=== PATIENT | male | born 1955 | race Caucasian/White ===

== ENCOUNTER → 2017-06-28 | Outpatient (CLI) | payer OTHER | END | disposition home or self-care (01) | LOC: C.LAB 15:29 | PROVIDERS: ATTEND Urology | DX: N52.9 Male erectile dysfunction, unspecified (principal) ==

== ENCOUNTER → 2017-11-08 | Outpatient (CLI) | payer OTHER | END | disposition home or self-care (01) | LOC: C.LAB 14:56 | PROVIDERS: ATTEND Urology | DX: N52.9 Male erectile dysfunction, unspecified (principal) ==

== ENCOUNTER → 2017-11-17 | Outpatient (CLI) | payer OTHER | END | disposition home or self-care (01) | LOC: C.PATHSPEC 17:10 | PROVIDERS: ATTEND Urology | DX: C61 Malignant neoplasm of prostate (principal) ==

== ENCOUNTER → 2017-12-01 | Outpatient (CLI) | payer OTHER ==
[2017-12-01 19:06] LABS: BLOOD UREA NITROGEN 34 mg/dl (7-18); CREATININE 1.37 mg/dl (0.60-1.40)
== END | disposition home or self-care (01) ==
LOC: C.LAB 15:47
PROVIDERS: ATTEND Urology
DX: C61 Malignant neoplasm of prostate (principal)

== ENCOUNTER → 2017-12-08 | Outpatient (CLI) | payer OTHER ==
[~2017-12-08] MED LIST: OPTIRAY 320 IV PRN
--- NOTE | 2017-12-08 13:07 | DIAGNOSTIC IMAGING REPORT ---
ABD/PELVIS IV CONTRAST ONLY CLINICAL HISTORY: 62 years-old Male presenting with PROSTATE CA. TECHNIQUE: Multidetector CT of the abdomen and pelvis was performed after the administration of intravenous contrast. IV contrast: 119 mL of Optiray 320. A dose lowering technique was used consistent with the principles of ALARA (as low as reasonably achievable). COMPARISON: None. CT DOSE (mGy.cm): The estimated cumulative dose is 804.93 mGycm. FINDINGS: Design/Animation Instructor topogram: Unremarkable. Lung bases: Lungs and pleural spaces clear. Normal heart size. No pericardial or pleural effusion. Liver: Normal morphology. Indeterminant vague lesion in segment IVb (series 3 image 127). Patent hepatic vasculature. Biliary: No intrahepatic or extrahepatic biliary ductal dilatation. Normal gallbladder. Pancreas: Normal. Mild prominence of the pancreatic duct diffusely. No gross evidence of a mass lesion. Spleen: Normal. Adrenal glands: Nonspecific mild thickening of the adrenal glands. Kidneys and ureters: Nonobstructing 4 mm calculus at the lower pole of the left kidney. Normal renal parenchyma. No hydronephrosis. Normal ureters. Bladder: Circumferential bladder wall thickening. Pelvic organs: Prostate enlargement likely secondary to benign prostatic hyperplasia. Bowel: Diverticulosis of the proximal to mid sigmoid colon and descending colon. No pericolonic fat infiltration or wall thickening. Mild stool burden. The appendix is normal. No bowel obstruction. Peritoneal cavity: No free fluid or intraperitoneal gas. Few calcifications noted within the omentum possibly indicating prior fat necrosis. These do not demonstrate associated suspicious soft tissue. Lymph nodes: No enlarged lymph nodes in the abdomen or pelvis. Vasculature: Aorta and IVC patent and normal in caliber. Abdominal wall: Normal. Musculoskeletal: Degenerative changes of the spine. IMPRESSION: 1. Indeterminate lesion in segment IVb of the liver, which has a somewhat suspicious morphology. Further evaluation with MR of the liver is recommended. Differential considerations include a metastatic lesion, hemangioma, or focal fat among other etiologies. 2. No lymphadenopathy. 3. Prostatomegaly with chronic bladder outlet obstruction. 4. Diverticulosis. 5. Nonobstructing 4 mm left renal calculus. Electronically signed by: Yony Garcia M.D. 12/08/2017 1:05 PM Dictated Date/Time: 12/08/2017 12:58 PM
--- NOTE | 2017-12-08 15:35 | DIAGNOSTIC IMAGING REPORT ---
BONE SCAN WHOLE BODY HISTORY: Prostate carcinoma PROSTATE CA RADIOTRACER: 25.7 mCi Tc-99m MDP STUDY/IMAGES: Planar anterior and posterior whole body imaging was performed 3 hours following the intravenous administration of radiotracer. COMPARISON: None. FINDINGS: Bilateral renal activity is present. Activity characteristics of the axial and appendicular skeleton are remarkable for scattered degenerative activity. This primarily is in the feet and ankles as well as shoulders. There is no evidence for metastatic bone process. IMPRESSION: No evidence for metastatic bone disease. The above report was generated using voice recognition software. It may contain grammatical, syntax or spelling errors. Electronically signed by: Phill Adams M.D. 12/08/2017 3:33 PM Dictated Date/Time: 12/08/2017 3:32 PM
== END | disposition home or self-care (01) ==
LOC: C.NUCL 11:36
PROVIDERS: ATTEND Urology
DX: C61 Malignant neoplasm of prostate (principal)

== ENCOUNTER 2023-01-25 12:59 | Observation (INO) ==
--- NOTE | 2023-01-25 13:21 | Emergency Department Note ---
Impression & Plan Generalized weakness, Elevated hemidiaphragm, Ambulatory dysfunction ED Provider Note Name: RAMON PETERSON Age: 67 Sex: M Arrives Via: Walk-In Informant: Patient ED Provider: Adolph Simmons MD Chief Complaint: Weakness Impression: As per impressions above Medical Decision Making: Healthy 67-year-old gentleman known to me from being in the department throughout most of the morning. He was here for generalized weakness and feeling ataxic while walking. Blood pressure had been treated during that time and after being seen by hospitalist plan was to have outpatient neurology follow-up. He had had an MRI of the head, neck as well as a CT of the head and neck without any concerning findings as cause of this. Unfortunately patient notes he was just feeling too weak and decided to check back into the ER. I will note that previous discussions he had noted a GI bug about 3 weeks ago and thus Guillain-Sanchez is part of my differential but after discussion with hosp italist they do not feel we should start IVIG at this time. They wish to further work-up this prior to that. I will note that a chest x-ray was obtained as had not been obtained earlier does have an elevated right hemidiaphragm. Patient is not hypoxic he has no shortness of breath he is no distress. This too was discussed with hospitalist and they will continue work-up with further imaging and consulting neurologist. Prior Medical Record and Triage/Nursing Notes reviewed by Me Differentials:Extensive differential considered including brain, cervical, thoracic spinal pathology, Guillain-Sanchez, viral infection, electrolyte imbalance, many other pathologies considered. Vital Signs: reviewed and remarkable for HTN Interventions: saline lock Imagin view chest x-ray as per my interpretation reveals a right elevated right hemidiaphragm which is new from chest x-ray in 2018. EKG:n as per my interpretation. Indication weakness. Normal sinus rhythm at 73 bpm QTc of 456. There is no ectopy nor ischemia. When compared to EKG from earlier in the day there is no acute change. Patient does have an incomplete right bundle branch block Consults:Dr Ashley KULKARNI Hospitalist Plan: Disposition:Hospitalization. Condition: Good History of Present Illness:67-year-old gentleman arrives for evaluation of weakness. Patient was in the ER throughout most of the morning for nonspecific weakness in proximal muscle groups of the arms and legs and feeling like he is just not walking properly. This was associated with significant hypertension which was new for him. He was pretreated with antihypertensive while in the department. He was eval by hospitalist. Hospitalist felt continued outpatient work-up and neurology follow-up but no indication for hospitalization. Patient was prescribed lisinopril 10 mg daily and given a dose of that while here. Patient notes that he just is too weak to get around and he is not feeling safe with ambulating at home. Work-up in earlier stay included MRI and CT scan of head and cervical spine as well as extensive laboratory testing which was unremarkable. Past History:no significant PMH Home Medications:(was prescribed Lisinopril) Allergies:NKDA Vitals:Blood Pressure: 167/91, Pulse 81, RR 18, T 36.7C, O2 96% on RA Physical Exam: GENERAL: Patient is tired appearing and in minimal distress. GASTROINTESTINAL: Abdomen soft, non-tender, no peritonitis.Bowel sounds positive.No masses appreciated. BACK: No midline tenderness, no CVA tenderness EXTREMITIES: Normal motion all extremities, no cyanosis, no edema. NEUROLOGIC: Alert and oriented. Patient does appear to have some proximal muscle weakness in his thighs but it is 5 out of 5 strength and he is able to ambulate. He does have a bit of a hunch while walking but no specific focal deficits other than generalized muscle weakness. SKIN: No rash, no jaundice, no diaphoresis. PSYCH: Appropriate GCS: 15 Adolph Simmons MD Past Med/Surg History Medical History (Updated 01/25/23 @ 14:45 by Adolph Simmons MD) Astigmatism of both eyes Bladder neck contracture Elevated PSA Erectile dysfunction Victoria catheter in place History of prostate cancer S/P PROSTATECTOMY Hx of cystitis Hypertension Impotence, organic Prostate cancer Urinary incontinence Urinary retention with incomplete bladder emptying UTI (urinary tract infection) due to Enterococcus Surgical History History of open reduction and internal fixation (ORIF) procedure LEFT WRIST History of prostate surgery LAP ROBOTIC ASSISTED RADICAL PROSTATECTOMY= 07/07/18= GRADE VIEW 1, MAC 3, ETT 8.0 AT [facility] Family History Father Family history of diabetes mellitus Social History Smoking Status: Former smoker Second Hand Exposure: No; Do You Dip or Chew Tobacco: No; Hx Alcohol Use: Yes Alcohol type: wine Hx Substance Use: No Preferred Language: Maltese Communication Ability: Effective Visual Impairment: No Limitations Hearing Ability: Normal Wheel Blocker Required: No Beliefs That Will Affect Care: None Current Living Situation: Alone Other Information That Helps Us Care for You: No Feels Safe at Home: Yes Safety Concerns: Feels Safe At This Time Assistive Devices: None Allergies Allergies Allergy/AdvReac Type Severity Reaction Status Date / Time No Known Allergies Allergy Verified 01/25/23 10:07 Home Meds Home Medications Medication Instructions Recorded Confirmed ascorbic acid (vitamin C) 1,000 mg 1 g PO QAM 10/07/18 01/25/23 tablet (Vitamin C) acetaminophen 500 mg tablet 1,000 mg PO Q6H PRN Pain 01/25/23 01/25/23 (Tylenol Extra Strength) ibuprofen 200 mg tablet (Motrin IB) 600 - 800 mg PO BID PRN Pain 01/25/23 01/25/23 multivitamin 1 tab PO DAILY 01/25/23 01/25/23 Previous Rx's Medication Instructions Recorded lisinopril 10 mg tablet 10 mg PO DAILY #30 tabs 01/25/23 Results & Data (ED) Vital Signs Vital Signs - 24 hr 01/25/23 13:01 01/25/23 13:27 01/25/23 13:31 Temperature 36.7 C Temperature Source Oral Pulse Rate 81 76 Pulse Rate [Apical] 74 Pulse Rhythm Regular Pulse Strength Normal Respiratory Rate 18 19 Respiratory Effort / Characteristics Non-Labored Spontaneous Non-Labored Respiratory Depth Normal Respiratory Pattern Regular Blood Pressure 167/91 H Blood Pressure [Left Arm] 156/88 H Blood Pressure Mean 116 Blood Pressure Mean [Left Arm] 110 Blood Pressure Position Sitting Pulse Oximetry 96 96 Oxygen Delivery Method Room Air Room Air Sepsis Recent Fever Within 48 Hours No Sepsis New/Unexplained Change in Mental Status No Sepsis Action Taken by Nursing No Action Required Laboratory Data 01/26/23 05:59 01/26/23 05:59 Lab Results 01/25/23 01/25/23 01/25/23 Range/Units 13:26 13:26 13:43 ESR 18 (0-20) mm/hr Magnesium 1.8 (1.7-2.4) mg/dl Total Creatine Kinase 347 H (30-223) U/L C-Reactive Protein 0.58 H (0-0.5) mg/dl Procalcitonin < 0.05 (0-0.5) ng/ml SARS-CoV-2, RNA, NAAT (NEGATIVE) 01/25/23 Range/Units 13:47 ESR (0-20) mm/hr Magnesium (1.7-2.4) mg/dl Total Creatine Kinase (30-223) U/L C-Reactive Protein (0-0.5) mg/dl Procalcitonin (0-0.5) ng/ml SARS-CoV-2, RNA, NAAT NEGATIVE (NEGATIVE) Administered Medications Acetaminophen (Acetaminophen 500 Mg Tab) 1,000 mg PO TID LIANET Stop: 02/25/23 08:59 Last Admin: 01/26/23 08:41 Dose: 1,000 mg Documented By: EMILIA Baclofen (Baclofen 10 Mg Tab) 5 mg PO TID PRN PRN Reason: muscle pain/spasm Stop: 02/25/23 08:59 Last Admin: 01/26/23 08:41 Dose: 5 mg Documented By: EMILIA Hydromorphone HCl (Hydromorphone Inj 0.5 Mg/0.5 Ml Syr) 0.5 mg IV Q6H PRN PRN Reason: Pain Stop: 02/09/23 08:07 Last Admin: 01/26/23 08:42 Dose: 0.5 mg Documented By: EMILIA Ketorolac Tromethamine (Ketorolac 30 Mg/Ml Vial) 30 mg IV Q6H LIANET Stop: 01/31/23 06:59 Last Admin: 01/26/23 06:14 Dose: 30 mg Documented By: MAGGI Lisinopril (Lisinopril 10 Mg Tab) 10 mg PO DAILY LIANET Stop: 02/25/23 08:59 Last Admin: 01/26/23 07:55 Dose: 10 mg Documented By: EMILIA Melatonin (Melatonin 3 Mg Tab) 3 mg PO HS PRN PRN Reason: Sleep Stop: 02/24/23 21:30 Last Admin: 01/25/23 21:45 Dose: 3 mg Documented By: MAGGI Oxycodone HCl (Oxycodone Hcl Ir 5 Mg Tab (Immediate Release)) 10 mg PO Q6H PRN PRN Reason: Pain Stop: 02/09/23 02:41 Last Admin: 01/26/23 03:02 Dose: 10 mg Documented By: MAGGI Discontinued Medications Acetaminophen (Acetaminophen 325 Mg Tab) 650 mg PO Q4H PRN PRN Reason: pain/fever Stop: 02/24/23 15:49 Last Admin: 01/26/23 07:54 Dose: 650 mg Documented By: Admin: 01/26/23 01:28 Dose: 650 mg Documented By: Admin: 01/25/23 21:23 Dose: 650 mg Documented By: Admin: 01/25/23 16:25 Dose: 650 mg Documented By: EMILIA Famotidine (Famotidine 20 Mg Tab) 20 mg PO QAM ONE Stop: 01/25/23 15:51 Last Admin: 01/25/23 16:04 Dose: 20 mg Documented By: EMILIA Hydromorphone HCl (Hydromorphone Inj 0.5 Mg/0.5 Ml Syr) 0.25 mg IV NOW STA Stop: 01/25/23 23:35 Last Admin: 01/25/23 23:49 Dose: 0.25 mg Documented By: MAGGI Lactated Ringer's (Lr) 1,000 mls @ 125 mls/hr IV .Q8H LIANET Stop: 01/25/23 23:49 Last Infusion: 01/26/23 00:13 Dose: 0 mls/hr Documented By: Admin: 01/25/23 16:08 Dose: 125 mls/hr Documented By: EMILIA Ioversol (Optiray 320 125ml) 115 ml IV ONCE ONE Stop: 01/25/23 14:19 Last Admin: 01/25/23 14:18 Dose: 115 ml Documented By: CURT Ketorolac Tromethamine (Ketorolac Tromethamine 15 Mg/Ml Vial) 15 mg IV Q6 LIANET Stop: 01/30/23 16:29 Last Admin: 01/25/23 23:23 Dose: 15 mg Documented By: Admin: 01/25/23 16:06 Dose: 15 mg Documented By: EMILIA Ketorolac Tromethamine (Ketorolac Tromethamine 15 Mg/Ml Vial) 15 mg IV NOW ONE Stop: 01/26/23 01:13 Last Admin: 01/26/23 01:28 Dose: 15 mg Documented By: MAGGI Oxycodone HCl (Oxycodone Hcl Ir 5 Mg Tab (Immediate Release)) 5 mg PO Q4H PRN PRN Reason: Pain Stop: 02/08/23 17:48 Last Admin: 01/25/23 22:07 Dose: 5 mg Documented By: Admin: 01/25/23 18:07 Dose: 5 mg Documented By: EMILIA Imaging Data Radiologist's Impression: Chest X-Ray 01/25/23 13:10 SINGLE VIEW CHEST CLINICAL HISTORY: Generalized weakness. FINDINGS: An AP, portable, upright chest radiograph is compared to study dated 06/21/2018. The cardiomediastinal silhouette is unremarkable. Elevation of the right hemidiaphragm is new from 2018. There is associated right basilar atelect asis. No airspace consolidation typical for pneumonia or large pleural effusion is identified. No pneumothorax is seen. The bony thorax is grossly intact. IMPRESSION: 1. No active disease in the chest. 2. Elevation of the right hemidiaphragm with right basilar atelectasis is new from 06/21/2018. This could be seen with diaphragmatic paralysis. Correlate clinically. ACT 112: Negative or not required by law. Electronically signed by: Antonio Mcfarlane M.D. 01/25/2023 2:02 PM Discharge Plan Visit Data Chief Complaint: Fall Stated Complaint: FALL,DIFFICULTY WALKING,STANDING ED Provider: Adolph Simmons Discharge Problem: Generalized weakness, Elevated hemidiaphragm, Ambulatory dysfunction Patient Disposition: Admitted As Inpatient Discharge Instructions Interventions: ED Discharge Assessment Last Done: 01/25/23 15:37
--- NOTE | 2023-01-25 14:03 | XRay Report ---
SINGLE VIEW CHEST CLINICAL HISTORY: Generalized weakness. FINDINGS: An AP, portable, upright chest radiograph is compared to study dated 06/21/2018. The cardio mediastinal silhouette is unremarkable. Elevation of the right hemidiaphragm is new from 2018. There is associated right basilar atelectasis. No airspace consolidation typical for pneumonia or large ple ural effusion is identified. No pneumothorax is seen. The bony thorax is grossly intact. IMPRESSION: 1. No active disease in the chest. 2. Elevation of the right hemidiaphragm with right basilar atelectasis is new from 06/21/2018. This c ould be seen with diaphragmatic paralysis. Correlate clinically. ACT 112: Negative or not required by law. Electronically signed by: Antonio Mcfarlane M.D. 01/25/2023 2:02 PM
--- NOTE | 2023-01-25 14:06 | Electrocardiogram Report ---
Test Reason : Blood Pressure : / mmHG Vent. Rate : 073 BPM Atrial Rate : 073 BPM P-R Int : 172 ms QRS Dur : 094 ms QT Int : 414 ms P-R-T Axes : 003 068 017 degrees QTc Int : 456 ms Normal sinus rhythm Normal ECG When compared with ECG of 25-JAN-2023 05:49, (unconfirmed) No significant change was found Confirmed by Kennedy Ford ([id number]) on 01/25/2023 2:06:22 PM Referred By: Confirmed By:Kennedy Ford
[2023-01-25 14:09] LABS: C Reactive Protein 0.58 mg/dl (0-0.5); Magnesium 1.8 mg/dl (1.7-2.4)
--- NOTE | 2023-01-25 14:12 | History & Physical Report ---
Date of Service January 25, 2023 Assessment & Plan (1) Paresthesia: Plan: Given history with neck stretching possible higher up compression C5-C6 seen on MRI is causing his symptoms - this could also be an explanation for his subjective leg weakness. Consult ortho spine. However given very specific ulna distribution (mainly distal to wrist) and bike riding possible compression at wrist although not reproducible on exam Recommend nerve conduction testing done as outpatient Given ongoing neck pain will get CT head/neck angio to assess for dissection. Start Toradol 15mg q6h with acetaminophen PRN for breakthrough pain Famotidine for GI prophylaxis Lumbar spine MRI given pain and subjective hip flexion weakness (giving out) in legs Consult neurology (2) Neck pain: Plan: CT angio head/neck to assess for vertebral artery dissection ?muscular vs. cervical spinal compression (3) Elevated hemidiaphragm: Plan: Unilateral right sided - ?due to compression in neck. Unclear if related to his current complaints but given new since 2018 and concern is for nerve involvement will get CT chest with IV contrast to work this up further. (4) Hypertension: Plan: Newly diagnosed. 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 He has never had these symptoms previously. Symptoms started on Wednesday after stretching his neck and intermittent since that time. Neck pain around T1 centrally. he reports paresthesias (tingling) mainly in his hand on ulnar side but also possibly on his forearm. No problems with his upper arm. Worse whenever he is resting at night. He has been on long bike rides and runs since this time without a problem. No reduction in strength of his upper extremities. He has also noticed having to lift up his legs a little higher and his gait has been a bit more imbalanced with mild pain in sciatic region. Mainly coming in today because his symptoms have not been improving but also not getting much worse. No facial droop, change in vision, speech or hearing. He was seen in the emergency room and discharged with advice to follow up for nerve conduction studies as an outpatient. However when he went out to the car he tried to get in and was unable to support his weight on his flexed hip. he reports no dizziness, shortness of breath or chest pain prior to falling. Otherwise well. No fever, chills, URI, GI or urinary symptoms. Allergies Allergy/AdvReac Type Severity Reaction Status Date / Time No Known Allergies Allergy Verified 01/25/23 10:07 Home Medications Medication Instructions Recorded Confirmed Type ascorbic acid (vitamin C) 1,000 mg 1 g PO QAM 10/07/18 01/25/23 History tablet (Vitamin C) acetaminophen 500 mg tablet 1,000 mg PO Q6H PRN Pain 01/25/23 01/25/23 History (Tylenol Extra Strength) ibuprofen 200 mg tablet (Motrin IB) 600 - 800 mg PO BID PRN Pain 01/25/23 01/25/23 History lisinopril 10 mg tablet 10 mg PO DAILY #30 tabs 01/25/23 01/25/23 Rx multivitamin 1 tab PO DAILY 01/25/23 01/25/23 History Past Med/Surg History Medical History (Updated 01/25/23 @ 14:45 by Adolph Simmons MD) Astigmatism of both eyes Bladder neck contracture Elevated PSA Erectile dysfunction Victoria catheter in place History of prostate cancer S/P PROSTATECTOMY Hx of cystitis Hypertension Impotence, organic Prostate cancer Urinary incontinence Urinary retention with incomplete bladder emptying UTI (urinary tract infection) due to Enterococcus Surgical History History of open reduction and internal fixation (ORIF) procedure LEFT WRIST History of prostate surgery LAP ROBOTIC ASSISTED RADICAL PROSTATECTOMY= 07/07/18= GRADE VIEW 1, MAC 3, ETT 8.0 AT [facility] Family History Father Family history of diabetes mellitus Social History Smoking Status: Former smoker Second Hand Exposure: No; Do You Dip or Chew Tobacco: No; Hx Alcohol Use: Yes Alcohol type: wine Hx Substance Use: No Preferred Language: Nepali Communication Ability: Effective Visual Impairment: No Limitations Hearing Ability: Normal Internal Salesperson Required: No Beliefs That Will Affect Care: None Current Living Situation: Alone Other Information That Helps Us Care for You: No Feels Safe at Home: Yes Safety Concerns: Feels Safe At This Time Assistive Devices: None Review of Systems Review of Systems: All systems reviewed & are unremarkable except as noted in HPI & below Physical Exam Constitutional: WD/WN, vitals as above Eyes: PERRL, conjunctivae normal, anicteric sclerae ENMT: external ear and nose normal, oropharynx normal Neck: trachea midline, no thyromegaly Respiratory: normal respiratory effort, lungs clear to auscultation Cardiovascular: RRR, no murmur, no edema Gastrointestinal (Abdomen): normal bowel sounds, soft, nontender, no hepatosplenomegaly Musculoskeletal: no cyanosis or clubbing, extremities motor strength 5/5 Spine: + cervical spinal tenderness (C8/T1) Skin: no rashes, warm and dry Neurologic: CN's II-XI intact bilaterally, moves all extremities and awake; + abnormal deep tendon reflexes (areflexia b/l), no focal motor deficits (5/5 power throughout UE/LE b/l including finger adduction) and not confused Speech / Cognition: normal speech Cranial Nerves: PERRL, EOM intact bilaterally, normal facial strength, tongue midline, able to rotate head bilaterally, able to elevate shoulders bilaterally, no nystagmus and symmetric palate elevation Psychiatric: A+Ox3, euthymic affect Results & Data Results & Data Vital Signs (Past 12 Hours) Vital Signs Temp Pulse Pulse Resp BP BP Pulse Ox 01/25/23 13:31 74 19 156/88 H 96 01/25/23 13:27 76 01/25/23 13:01 36.7 C 81 18 167/91 H 96 O2 Del Method 01/25/23 13:31 Room Air 01/25/23 13:27 01/25/23 13:01 Room Air Diagnostic Findings SINGLE VIEW CHEST CLINICAL HISTORY: Generalized weakness. FINDINGS: An AP, portable, upright chest radiograph is compared to study dated 06/21/2018. The cardiomediastinal silhouette is unremarkable. Elevation of the right hemidiaphragm is new from 2018. There is associated right basilar atelectasis. No airspace consolidation typical for pneumonia or large pleural effusion is identified. No pneumothorax is seen. The bony thorax is grossly intact. IMPRESSION: 1. No active disease in the chest. 2. Elevation of the right hemidiaphragm with right basilar atelectasis is new from 06/21/2018. This could be seen with diaphragmatic paralysis. Correlate clinically. Medications Administered ER Medications Given: None ECG Rate (beats per minute): 73 Rhythm: normal sinus Findings: no acute ischemic change Comparison ECG Date: from (January 25, 2023) Change: no significant change Code Status & VTE Plan Code Status Full VTE Prophylaxis Plan VTE Prophylaxis will be ordered: No PG Care Time/CCT Total # of Minutes Spent Total Time Spent with Patient: Total time spent is greater than 50% in coordination of care (as documented) at patient's floor/unit and/or counseling patient: Coding Level of Care Code 11110 INT INP/OBS CARE 3/75MIN Diagnoses Paresthesia R20.2 Neck pain M54.2 Elevated hemidiaphragm J98.6 Hypertension I10 Prostate cancer C61
[2023-01-25] MEDS ORDERED: OPTIRAY 320 125ml IV ONE (14:18)
--- NOTE | 2023-01-25 14:45 | CT Scan Report ---
CT ANGIOGRAM OF THE BRAIN CLINICAL HISTORY: Neck pain. Paresthesias. COMPARISON STUDY: CT and MRI of the brain dated 01/25/2023. TECHNIQUE: Following the IV administration of 115 cc of Optiray 320, CT angiogram of the brain was pe rformed from the skull base to the vertex. Images are reviewed in the axial, sagittal, and coronal pl anes. 3-D MIPS images are created and assessed. IV contrast was administered without complication. A dose lowering technique was utilized adhering to the principles of ALARA. FINDINGS: Brain parenchyma: The brain parenchyma is normal in appearance. There is no evidence of hemorrhage, m ass effect, or acute territorial ischemia noting angiographic phase technique. There is no evidence o f enhancing mass lesion on the angiogram phase images. No extra-axial fluid collection is seen. Dumont- white matter differentiation is preserved. Ventricles, sulci, and cisterns: Normal in configuration. CT angiogram of the brain: The internal carotid arteries are widely patent, as are the anterior and m iddle cerebral arteries. The right A1 segment is diminutive. The vertebrobasilar system and posterior cerebral arteries are widely patent. The right vertebral artery is dominant. There is no aneurysm, h igh-grade stenosis, or focal vessel cutoff identified throughout the intracranial circulation. Dural sinuses: Clear as visualized. Orbits: The bony orbits are intact. The orbital contents are normal as visualized. Sinuses and mastoids: There is mild mucosal thickening within the maxillary antra. The remaining para nasal sinuses are clear. The mastoid air cells are well pneumatized. Calvarium: Unremarkable. IMPRESSION: 1. There is no evidence of hemorrhage, mass effect, or acute territorial ischemia noting angiographic phase technique. 2. Unremarkable CT angiogram of the brain. ACT 112: Negative or not required by law. Electronically signed by: Antonio Mcfarlane M.D. 01/25/2023 2:42 PM
--- NOTE | 2023-01-25 14:59 | CT Scan Report ---
CT ANGIOGRAPHY OF THE NECK WITH CONTRAST CLINICAL HISTORY: Neck pain, bilateral paresthesia ?vertebral artery dissection. COMPARISON STUDY: Cervical spine CT performed earlier today. Technique: CT angiography of the carotid and vertebral arteries was obtained using Optiray and 3D rec onstruction on an independent workstation. NASCET criteria was utilized. Automated exposure control was utilized for the study. A dose lowering technique was utilized adhering to the principles of ALA RA. Findings: Please note that the chest CT will be reported separately. There is no cervical lymphadenop athy. There is no cervical spine fracture. The bilateral common carotid, cervical internal carotid an d vertebral arteries are patent. There is no dissection or stenosis within these vessels. The right v ertebral artery is dominant. There is no aneurysm within the neck. The CTA of the head will be report ed separately. IMPRESSION: No stenosis or dissection within the major vessels of the neck. ACT 112: Negative or not required by law. Electronically signed by: Buck Cowart M.D. 01/25/2023 2:57 PM
--- NOTE | 2023-01-25 15:07 | CT Scan Report ---
CHEST CT WITH CONTRAST CT DOSE: 1213.44 mGy.cm HISTORY: Acute shortness of breath with right hemidiaphragmatic elevation new right hemidiaphragm el evation TECHNIQUE: Multiaxial CT images of the chest were performed following the IV administration of 115 cc of Optiray. A dose lowering technique was utilized adhering to the principles of ALARA. COMPARISON: Chest radiograph of same day, 06/11/2018 FINDINGS: Unremarkable thyroid. No lymphadenopathy. Heart is mildly enlarged. Mild coronary artery ca lcifications. Unremarkable thoracic aorta and pulmonary artery. Moderate right hemidiaphragmatic elev ation. No pneumothorax, pleural effusion or overt pulmonary edema. The left lung is clear. Subsegment al linear consolidation of the right lung base. There are no suspicious pulmonary nodules or masses i dentified. There is mildly decreased transverse dimension of the trachea. Tiny hiatal hernia. Moderate colonic fecal retention. No acute process of the imaged upper abdomen. U nremarkable soft tissues. No acute fracture. IMPRESSION: 1. Moderate right diaphragmatic elevation with subsegmental right basilar atelectasis. 2. No lymphadenopathy, pleural effusion or airspace consolidation typical for pneumonia. 3. Cardiomegaly with mild coronary artery calcifications. ACT 112: Negative or not required by law. Electronically signed by: Andrea Condon M.D. 01/25/2023 3:05 PM
[2023-01-25] MEDS ORDERED: LACTATED RINGER'S 1,000 ML IV SCH (15:50)
[2023-01-25] MEDS ORDERED: FAMOTIDINE 20 MG TAB PO ONE (15:50)
--- NOTE | 2023-01-25 16:01 | Magnetic Resonance Report ---
MR lumbar spine wo con CLINICAL HISTORY: 67 years-old Male with bilateral lower hip flexor weakness. Chronic low back pain COMPARISON: Chest radiograph of same day TECHNIQUE: Multiplanar, multi sequence MRI of the lumbar spine was performed without intravenous cont rast. FINDINGS: Pocket Setter localizer images demonstrate no gross extraspinal abnormality. The conus medullaris terminates at T12-L1. Signal within the imaged thoracic spinal cord is unremarkable. No acute fracture, subluxat ion, endplate erosion or marrow replacing process. Mild deep tissue edema adjacent to the L4-L5 and L 5-S1 facets. T12-L1: Mild intervertebral disc space narrowing with spondylotic spurring, ligamentum flavum thicke louie and moderate facet arthrosis. No central canal or neural foraminal stenosis. L1-L2: Moderate intervertebral disc space narrowing with spondylotic spurring, ligamentum flavum thic kening and moderate facet arthrosis. Small circumferential annular disc bulge. Mild left neural juan carlos inal narrowing. The central canal and right neural foramen are patent. L2-L3: Mild spondylotic spurring. Ligamental flavum thickening with moderate facet arthrosis. No bebo tral canal or neural foraminal stenosis. L3-L4: Mild intervertebral disc space narrowing with spondylotic spurring, ligamentum flavum thickeni ng and moderate facet arthrosis. No central canal or neural foraminal stenosis. L4-L5: Mild spondylotic spurring. Ligamental flavum thickening with severe facet arthrosis.No centra l canal or neural foraminal stenosis. L5-S1: Moderate to severe intervertebral disc space narrowing. Mild spondylitic spurring with centra l disc osteophyte complex. Flattening of the ventral thecal sac. Moderate facet arthrosis. No central canal or neural foraminal stenosis. IMPRESSION: 1. Discogenic degeneration and facet arthrosis as above without significant central canal or neural f oraminal narrowing. 2. Severe facet arthrosis at L4-L5 with mild adjacent likely degenerative related edema. ACT 112: Negative or not required by law. The above report was generated using voice recognition software. It may contain grammatical, syntax o r spelling errors. Electronically signed by: Andrea Condon M.D. 01/25/2023 3:59 PM
[2023-01-25] MEDS: KETOROLAC TROMETHAMINE 15 MG/ML VIAL IV SCH ×2 (16:06→23:23)
[2023-01-25] MEDS: ACETAMINOPHEN 325 MG TAB PO PRN ×2 (16:25→21:23)
--- NOTE | 2023-01-25 17:00 | Neurology Consultation ---
Date of Consultation January 25, 2023 Assessment & Plan (1) Paresthesia: 67 yo M presenting with gradual onset of upper extremity lower cervical distribution parasthesias, R hemidiaphragm paralysis/weakness and now lower extremity proximal weakness. This does not fit with classic GBS but could be explained by a polyradiculopathy perhaps infectious given his outdoor activities, lyme and [place] could both be implicated here. It is difficult to fully disregard the cervical stenosis seen on MRI but this would otherwise not explain his lumbar back pain and is too high to affect C7. Still, would appreciate spine surgery input. For workup of the polyradiculopathy would recommend an LP. I otherwise suspect his mild elevation in CK and slight increase in CRP are secondary to his activity level over the past two days. -- LP for cell count, protein, glucose, [place], lyme, CMV, biofire, cytology -- Check B12, TSH -- HIV, hepatitis panel -- Would not start any empiric treatment at this time -- Consider spine consult though suspect no surgical intervention -- Agree with initial ED outpatient plan for EMG if no other cause identified above -- Will continue to follow Telehealth Consultation Telehealth Information Telehealth Information: I performed this visit using a real-time telehealth connection between my location and the patients location ([facility]). After connecting through interactive tele-video, patient was identified by name and date of and/or wristband check.Patient (or authorized healthcare labor representative) was informed that this was a telemedicine visit and it was being conducted confidentially over secure lines. My office door was closed and no one else was present in the room with me.Patient (or authorized healthcare labor representative) provided consent to proceed with the visit, expressed an understanding of privacy and security of the telemedicine visit, and gave permission to have a hospital labor representative in the room in order to assist with the visit and to conduct portions of the visit, as needed. I informed the patient (or authorized healthcare labor representative) that I reviewed their record and presented the opportunity for them to ask any questions regarding the visit today. The patient agreed to participate. History of Present Illness Reason for Consultation: Arm numbness and leg weakness Requesting Physician: Dr. Rmairez Attending Physician: Luther Ramirez MD History of Present Illness Jonathon Trevizo is a 67 yo M presenting with gradual onset bilateral arm numbness and leg weakness. The patient reports that he did some stretching on Wednesday and noticed throughout the day that he had increasing numbness in the ulnar distribution of both hands, down the 4th and 5th digits. Denies any instrinsic hand weakness, no shooting pain from the neck but does describe pain at the T1 prominence. He was able to ride his bike on Wednesday and hike on Wednesday. No known tick exposure, no recent viral illnesses. He did note severe lumbar back pain especially after laying in bed and has not slept well. Denies any urinary symptoms including urinary retention. No headache, no GI illness no fever. He came to [facility] for the hand numbness and was discharged but when getting into his vehicle noticed hip flexor weakness which was new. Never had anything like this in the past. Allergies Allergy/AdvReac Type Severity Reaction Status Date / Time No Known Allergies Allergy Verified 01/25/23 10:07 Home Medications Medication Instructions Recorded Confirmed Type ascorbic acid (vitamin C) 1,000 mg 1 g PO QAM 10/07/18 01/25/23 History tablet (Vitamin C) acetaminophen 500 mg tablet 1,000 mg PO Q6H PRN Pain 01/25/23 01/25/23 History (Tylenol Extra Strength) ibuprofen 200 mg tablet (Motrin IB) 600 - 800 mg PO BID PRN Pain 01/25/23 01/25/23 History lisinopril 10 mg tablet 10 mg PO DAILY #30 tabs 01/25/23 01/25/23 Rx multivitamin 1 tab PO DAILY 01/25/23 01/25/23 History Patient History Medical History (Updated 01/25/23 @ 14:45 by Adolph Simmons MD) Astigmatism of both eyes Bladder neck contracture Elevated PSA Erectile dysfunction Victoria catheter in place History of prostate cancer S/P PROSTATECTOMY Hx of cystitis Hypertension Impotence, organic Prostate cancer Urinary incontinence Urinary retention with incomplete bladder emptying UTI (urinary tract infection) due to Enterococcus Surgical History History of open reduction and internal fixation (ORIF) procedure LEFT WRIST History of prostate surgery LAP ROBOTIC ASSISTED RADICAL PROSTATECTOMY= 07/07/18= GRADE VIEW 1, MAC 3, ETT 8.0 AT [facility] Family History Father Family history of diabetes mellitus Social History Smoking Status: Former smoker Second Hand Exposure: No; Do You Dip or Chew Tobacco: No; Hx Alcohol Use: Yes Alcohol type: wine Hx Substance Use: No Preferred Language: Bruneian Communication Ability: Effective Visual Impairment: No Limitations Hearing Ability: Normal Senior Sales Manager Required: No Beliefs That Will Affect Care: None Current Living Situation: Alone Other Information That Helps Us Care for You: No Feels Safe at Home: Yes Safety Concerns: Feels Safe At This Time Assistive Devices: None Review of Systems +arm numbness, leg weakness, lumbar and cervical pain Physical Exam Neurological Examination: Mental Status: Awake and alert. Oriented to person, place, and time. Fluent. Comprehension intact. Affect appropriate. Cranial Nerves: II: nelson grossly intact. III/IV/: Versions intact without nystagmus, no gaze preference. V: Facial sensation symmetric to light touch VII: Facial expression symmetric VIII: Hearing intact to voice IX/X: Palate elevates symmetrically XI: Shoulder shrug symmetric XII: Tongue midline Motor: Strength was symmetric and antigravity throughout. Pronator drift was absent. There were no abnormal movements. Coordination: Movements were non-ataxic - heel to wills were intact. Reflexes: Unable to assess over telemedicine Gait: Narrow based steady stance. Results & Data Vital Signs (Past 12 Hours) Vital Signs Temp Pulse Pulse Pulse Resp BP BP 01/25/23 15:54 36.8 C 87 18 01/25/23 15:37 36.7 C 73 18 172/88 H 01/25/23 13:31 74 19 156/88 H 01/25/23 13:27 76 01/25/23 13:01 36.7 C 81 18 167/91 H BP Pulse Ox O2 Del Method 01/25/23 15:54 158/88 H 94 Room Air 01/25/23 15:37 96 Room Air 01/25/23 13:31 96 Room Air 01/25/23 13:27 01/25/23 13:01 96 Room Air Laboratory Results Abnormal lab results 01/25/23 Range/Units 13:26 Total Creatine Kinase 347 H (30-223) U/L C-Reactive Protein 0.58 H (0-0.5) mg/dl Diagnostic Findings Chest X-Ray 01/25/23 13:10 SINGLE VIEW CHEST CLINICAL HISTORY: Generalized weakness. FINDINGS: An AP, portable, upright chest radiograph is compared to study dated 06/21/2018. The cardiomediastinal silhouette is unremarkable. Elevation of the right hemidiaphragm is new from 2018. There is associated right basilar atelectasis. No airspace consolidation typical for pneumonia or large pleural effusion is identified. No pneumothorax is seen. The bony thorax is grossly intact. IMPRESSION: 1. No active disease in the chest. 2. Elevation of the right hemidiaphragm with right basilar atelectasis is new from 06/21/2018. This could be seen with diaphragmatic paralysis. Correlate clinically. ACT 112: Negative or not required by law. Electronically signed by: Antonio Mcfarlane M.D. 01/25/2023 2:[address] 01/25/23 13:[address] WITH CONTRAST CT DOSE: 1213.44 mGy.cm HISTORY: Acute shortness of breath with right hemidiaphragmatic elevation new right hemidiaphragm elevation TECHNIQUE: Multiaxial CT images of the chest were performed following the IV ad ministration of 115 cc of Optiray. A dose lowering technique was utilized adhering to the principles of ALARA. COMPARISON: Chest radiograph of same day, 06/11/2018 FINDINGS: Unremarkable thyroid. No lymphadenopathy. Heart is mildly enlarged. Mild coronary artery calcifications. Unremarkable thoracic aorta and pulmonary artery. Moderate right hemidiaphragmatic elevation. No pneumothorax, pleural effusion or overt pulmonary edema. The left lung is clear. Subsegmental linear consolidation of the right lung base. There are no suspicious pulmonary nodules or masses identified. There is mildly decreased transverse dimension of the trachea. Tiny hiatal hernia. Moderate colonic fecal retention. No acute process of the imaged upper abdomen. Unremarkable soft tissues. No acute fracture. IMPRESSION: 1. Moderate right diaphragmatic elevation with subsegmental right basilar atelectasis. 2. No lymphadenopathy, pleural effusion or airspace consolidation typical for pneumonia. 3. Cardiomegaly with mild coronary artery calcifications. ACT 112: Negative or not required by law. Electronically signed by: Andrea Condon M.D. 01/25/2023 3:05 PM Head CTA 01/25/23 13:58 CT ANGIOGRAM OF THE BRAIN CLINICAL HISTORY: Neck pain. Paresthesias. COMPARISON STUDY: CT and MRI of the brain dated 01/25/2023. TECHNIQUE: Following the IV administration of 115 cc of Optiray 320, CT angiogram of the brain was performed from the skull base to the vertex. Images are reviewed in the axial, sagittal, and coronal planes. 3-D MIPS images are created and assessed. IV contrast was administered without complication. A dose lowering technique was utilized adhering to the principles of ALARA. FINDINGS: Brain parenchyma: The brain parenchyma is normal in appearance. There is no evidence of hemorrhage, mass effect, or acute territorial ischemia noting angiographic phase technique. There is no evidence of enhancing mass lesion on the angiogram phase images. No extra-axial fluid collection is seen. Dumont-white matter differentiation is preserved. Ventricles, sulci, and cisterns: Normal in configuration. CT angiogram of the brain: The internal carotid arteries are widely patent, as are the anterior and middle cerebral arteries. The right A1 segment is diminutive. The vertebrobasilar system and posterior cerebral arteries are widely patent. The right vertebral artery is dominant. There is no aneurysm, high-grade stenosis, or focal vessel cutoff identified throughout the intracranial circulation. Dural sinuses: Clear as visualized. Orbits: The bony orbits are intact. The orbital contents are normal as visualized. Sinuses and mastoids: There is mild mucosal thickening within the maxillary antra. The remaining paranasal sinuses are clear. The mastoid air cells are well pneumatized. Calvarium: Unremarkable. IMPRESSION: 1. There is no evidence of hemorrhage, mass effect, or acute territorial ischemia noting angiographic phase technique. 2. Unremarkable CT angiogram of the brain. ACT 112: Negative or not required by law. Electronically signed by: Antonio Mcfarlane M.D. 01/25/2023 2:42 PM Neck CTA 01/25/23 13:58 CT ANGIOGRAPHY OF THE NECK WITH CONTRAST CLINICAL HISTORY: Neck pain, bilateral paresthesia ?vertebral artery dissection. COMPARISON STUDY: Cervical spine CT performed earlier today. Technique: CT angiography of the carotid and vertebral arteries was obtained using Optiray and 3D reconstruction on an independent workstation. NASCET criteria was utilized. Automated exposure control was utilized for the study. A dose lowering technique was utilized adhering to the principles of ALARA. Findings: Please note that the chest CT will be reported separately. There is no cervical lymphadenopathy. There is no cervical spine fracture. The bilateral common carotid, cervical internal carotid and vertebral arteries are patent. There is no dissection or stenosis within these vessels. The right vertebral artery is dominant. There is no aneurysm within the neck. The CTA of the head will be reported separately. IMPRESSION: No stenosis or dissection within the major vessels of the neck. ACT 112: Negative or not required by law. Electronically signed by: Buck Cowart M.D. 01/25/2023 2:57 PM Lumbar Spine MRI 01/25/23 14:01 MR lumbar spine wo con CLINICAL HISTORY: 67 years-old Male with bilateral lower hip flexor weakness. Chronic low back pain COMPARISON: Chest radiograph of same day TECHNIQUE: Multiplanar, multi sequence MRI of the lumbar spine was performed without intravenous contrast. FINDINGS: Detail Manager localizer images demonstrate no gross extraspinal abnormality. The conus medullaris terminates at T12-L1. Signal within the imaged thoracic spinal cord is unremarkable. No acute fracture, subluxation, endplate erosion or marrow replacing process. Mild deep tissue edema adjacent to the L4-L5 and L5-S1 facets. T12-L1: Mild intervertebral disc space narrowing with spondylotic spurring, ligamentum flavum thickening and moderate facet arthrosis. No central canal or neural foraminal stenosis. L1-L2: Moderate intervertebral disc space narrowing with spondylotic spurring, ligamentum flavum thickening and moderate facet arthrosis. Small circumferential annular disc bulge. Mild left neural foraminal narrowing. The central canal and right neural foramen are patent. L2-L3: Mild spondylotic spurring. Ligamental flavum thickening with moderate facet arthrosis. No central canal or neural foraminal stenosis. L3-L4: Mild intervertebral disc space narrowing with spondylotic spurring, ligamentum flavum thickening and moderate facet arthrosis. No central canal or neural foraminal stenosis. L4-L5: Mild spondylotic spurring. Ligamental flavum thickening with severe facet arthrosis.No central canal or neural foraminal stenosis. L5-S1: Moderate to severe intervertebral disc space narrowing. Mild spondylitic spurring with central disc osteophyte complex. Flattening of the ventral thecal sac. Moderate facet arthrosis. No central canal or neural foraminal stenosis. IMPRESSION: 1. Discogenic degeneration and facet arthrosis as above without significant central canal or neural foraminal narrowing. 2. Severe facet arthrosis at L4-L5 with mild adjacent likely degenerative related edema. ACT 112: Negative or not required by law. The above report was generated using voice recognition software. It may contain grammatical, syntax or spelling errors. Electronically signed by: Andrea Condon M.D. 01/25/2023 3:59 PM
[2023-01-25] MEDS: oxyCODONE HCL IR 5 MG TAB (IMMEDIATE RELEASE) PO PRN ×2 (18:07→22:07)
[2023-01-25] MEDS ORDERED: MELATONIN 3 MG TAB PO PRN (21:31)
[2023-01-25] MEDS ORDERED: HYDROmorphone INJ 0.5 MG/0.5 ML SYR IV STA (23:34)
[2023-01-26] MEDS ORDERED: HYDROmorphone INJ 0.5 MG/0.5 ML SYR IV STA (01:11)
[2023-01-26] MEDS ORDERED: KETOROLAC TROMETHAMINE 15 MG/ML VIAL IV ONE (01:12)
[2023-01-26] MEDS: ACETAMINOPHEN 325 MG TAB PO PRN ×2 (01:28→07:54)
[2023-01-26] MEDS ORDERED: oxyCODONE HCL IR 5 MG TAB (IMMEDIATE RELEASE) PO PRN ×2 (02:42→02:48)
[2023-01-26] MEDS ORDERED: POLYETHYLENE (MIRALAX) 17 GM PACK PO PRN (02:50)
[2023-01-26] MEDS: KETOROLAC 30 MG/ML VIAL IV SCH ×2 (06:14→13:33)
[2023-01-26 06:43] LABS: Basophils # (auto) 0.03 K/uL (0-0.2); Basophils % (auto) 0.3 %; Eosinophils # (auto) 0.05 K/uL (0-0.50); Eosinophils % (auto) 0.6 %; Hematocrit (blood only) 43.8 % (42.0-52.0); Hemoglobin 15.4 g/dl (14.0-18.0); Immature Granulocytes # (auto) 0.03 K/uL (0.01-0.20); Immature Granulocytes % (auto) 0.3 %; Lymphocytes % (auto) 11.4 %; Mean Corpuscular Hemoglobin 30.3 pg (25.0-34.0); Mean Corpuscular Hgb Conc 35.2 g/dL (32.0-36.0); Mean Corpuscular Volume 86.2 fL (80.0-100.0); Mean Platelet Volume 9.2 fL (9.4-12.4); Monocytes # (auto) 0.39 K/uL (0.11-0.59); Monocytes % (auto) 4.4 %; Neutrophils # (auto) 7.27 K/uL (1.40-6.50); Platelet Count 263 K/uL (130-400); RDW Coefficient of Variation 12.7 % (11.5-14.5); RDW Standard Deviation 39.5 fL (36.4-46.3); Red Blood Count 5.08 M/uL (4.70-6.10); White Blood Count 8.77 K/ul (4.8-10.8)
[2023-01-26 06:57] LABS: Albumin Globulin Ratio 1.6 (0.9-2); Albumin Level 4.1 gm/dl (3.4-5.0); BUN Creatinine Ratio 13.9 (10-20); Bilirubin,Total 0.7 mg/dl (0.2-1.0); Calcium 9.5 mg/dl (8.6-10.3); Creatinine Clr Calc Pharmacy 70.1 ml/min; Est GFR (Non-African American) 66.4 ml/min; Globulin 2.6 gm/dl (2.5-4.0); Potassium 3.8 mmol/L (3.5-5.1); Total Protein 6.7 gm/dl (6.0-8.3)
[2023-01-26] MEDS ORDERED: KETOROLAC TROMETHAMINE 15 MG/ML VIAL IV SCH (08:00)
[2023-01-26] MEDS ORDERED: BACLOFEN 10 MG TAB PO PRN (08:08)
[2023-01-26] MEDS: ACETAMINOPHEN 500 MG TAB PO SCH ×2 (08:41→15:26)
[2023-01-26] MEDS: HYDROmorphone INJ 0.5 MG/0.5 ML SYR IV PRN ×2 (08:42→15:25)
[2023-01-26] MEDS ORDERED: lisinopril 10 MG TAB PO SCH (09:00)
--- NOTE | 2023-01-26 11:39 | Orthopedic Consultation ---
Date of Consultation January 26, 2023 Assessment & Plan (1) Cervical stenosis of spinal canal: MRIs of the cervical and lumbar spine available for review. He does demonstrate evidence of significant spinal stenosis most impressive at C5-C6 with bilateral neuroforaminal disease. This may account for a component of his arm symptoms on the left but would have little role in regards to his lower extremity function. Lumbar MRI is relatively normal considering his age. There is no gross neural compression. Plan at this time would like to complete the imaging studies with a thoracic scan to rule out any cord issues in this region. Make further conditions upon review of imaging and work-up. History of Present Illness Reason for Consultation: Progressive lower extremity weakness Attending Physician: Luther Park MD History of Present Illness This is a 67-year-old male that noted some numbness and tingling into his finger tips along the ulnar distribution the past few days but yesterday had a marked decline in function regarding lower extremities. In fact he lost the ability to ambulate over the course of a few hours secondary to proximal muscle weakness. He denies any numbness or tingling into the lower extremities or into the chest wall. Denies any clear radicular complaints. No loss of bowel or bladder at th is time. He is in no acute acute distress. Denies any specific trauma fall or event. Allergies Allergy/AdvReac Type Severity Reaction Status Date / Time No Known Allergies Allergy Verified 01/25/23 10:07 Home Medications Medication Instructions Recorded Confirmed Type ascorbic acid (vitamin C) 1,000 mg 1 g PO QAM 10/07/18 01/25/23 History tablet (Vitamin C) acetaminophen 500 mg tablet 1,000 mg PO Q6H PRN Pain 01/25/23 01/25/23 History (Tylenol Extra Strength) ibuprofen 200 mg tablet (Motrin IB) 600 - 800 mg PO BID PRN Pain 01/25/23 01/25/23 History lisinopril 10 mg tablet 10 mg PO DAILY #30 tabs 01/25/23 01/25/23 Rx multivitamin 1 tab PO DAILY 01/25/23 01/25/23 History Patient History Medical History (Updated 01/26/23 @ 11:38 by Minh Hartman, ) Astigmatism of both eyes Bladder neck contracture Elevated PSA Erectile dysfunction Victoria catheter in place History of prostate cancer S/P PROSTATECTOMY Hx of cystitis Hypertension Impotence, organic Prostate cancer Urinary incontinence Urinary retention with incomplete bladder emptying UTI (urinary tract infection) due to Enterococcus Surgical History History of open reduction and internal fixation (ORIF) procedure LEFT WRIST History of prostate surgery LAP ROBOTIC ASSISTED RADICAL PROSTATECTOMY= 07/07/18= GRADE VIEW 1, MAC 3, ETT 8.0 AT [facility] Family History Father Family history of diabetes mellitus Social History Smoking Status: Former smoker Second Hand Exposure: No; Do You Dip or Chew Tobacco: No; Hx Alcohol Use: Yes Alcohol type: wine Hx Substance Use: No Preferred Language: Latvian Communication Ability: Effective Visual Impairment: No Limitations Hearing Ability: Normal Exhibits Manager Required: No Beliefs That Will Affect Care: None Current Living Situation: Alone Other Information That Helps Us Care for You: No Feels Safe at Home: Yes Safety Concerns: Feels Safe At This Time Assistive Devices: None Physical Exam Physical Exam: On exam does not appear to be in any discomfort. He exhibits plus 5 out of 5 bilateral grasp right deltoids and biceps on the left is a 4/5 deltoid and bicep. Sensory is intact. Negative Hakeem sign. He has full active range of motion of cervical spine without Lhermitte's phenomenon or Spurling signs. Lower extremity exam reveals sensory to be intact. He has +5-5 plantarflexion dorsiflexion extensor houses longus. He has marked deficit in the bilateral quadriceps and hip flexors. He was unable to stand secondary to weakness. There is no gross tension signs. He has negative clonus to the ankles. Results & Data Vital Signs (Past 12 Hours) Vital Signs Temp Pulse Resp BP BP Pulse Ox O2 Del Method 01/26/23 09:06 166/89 H 01/26/23 07:40 192/104 H 01/26/23 07:37 36.5 C 74 16 191/105 H 96 Room Air
--- NOTE | 2023-01-26 13:21 | Magnetic Resonance Report ---
MR thoracic spine wo con HISTORY: 67 years-old Male leg weakness chronic mid back pain with lower extremity weakness. COMPARISON: MR lumbar spine 01/25/2023, chest CT 01/25/2023. TECHNIQUE: Multiplanar multisequence MRI of the thoracic spine was obtained without the use of IV con trast. FINDINGS: Moderate right hemidiaphragmatic elevation with right basilar atelectasis again noted. The imaged pos terior fossa structures appear unremarkable. Mild mucosal thickening of the maxillary sinuses. Normal signal within the thoracic and visualized cervical spinal cord. No acute fracture, subluxation, endp late erosion or destructive bone lesions. There is mild Modic type I endplate degeneration at T12-L1. Trace layering pleural effusions. Conus medullaris terminates at the T12-L1 level. Mild to moderate intervertebral disc space narrowing is most pronounced at T5-T6. Mild spondylotic sp urring with small annular disc bulging, ligamentum flavum thickening and mild to moderate facet arthr osis. No high-grade central canal or neural foraminal narrowing identified. There is mild to moderate left-sided neural foraminal narrowing noted at T7-T8 secondary to facet arthrosis and posterior disc osteophyte complex. Small right paracentral disc protrusion at this interspace. At T10-T11, there is normal left with mild to moderate right neural foraminal narrowing. IMPRESSION: 1. No acute fracture, subluxation or suspicious bone lesion. 2. Normal signal within the thoracic spinal cord. 3. No high-grade central canal or neural foraminal narrowing. 4. Right hemidiaphragmatic elevation with right basilar atelectasis redemonstrated. ACT 112: Negative or not required by law. The above report was generated using voice recognition software. It may contain grammatical, syntax o r spelling errors. Dictated: 01/26/2023 12:12 PM Transcribed: 01/26/2023 12:56 PM Dominique [id number] Electronically signed by: Andrea Condon M.D. 01/26/2023 1:20 PM
--- NOTE | 2023-01-26 15:20 | Fluoroscopy Report ---
LUMBAR PUNCTURE UNDER FLUOROSCOPY CLINICAL HISTORY: Bilateral lower extremity paresthesias/weakness; evaluate for the GBS/transverse my elitis PROCEDURE: Procedure and risks were explained. Informed consent was obtained. A final timeout was com pleted. The lower lumbar region was prepped and draped in sterile fashion. 1% lidocaine was utilized for skin anesthesia. Utilizing fluoroscopic guidance, a 22-gauge spinal needle was advanced into the intrathecal space at the L4-5 disc space level. Lateral and AP spot images were obtained. 1 mL of clear CSF fluid was nadira mario. The needle became dislodged and additional attempts at gaining access were unsuccessful. It was decided to attempt the LP at the L3-4 disc space level. Utilizing fluoroscopic guidance, a 22-gauge s gareth needle was advanced into the intrathecal space at the L3-4 disc space level. Permanent spot fausto ge was obtained. An additional 8 mL of clear CSF fluid was removed and sent to the lab for analysis. The needle was removed and Band-Aid applied. The patient tolerated the procedure well. Vital signs wi ll be monitored on the floor postprocedure. Total fluoroscopy time 1.08 minutes. DAP is 13.2.mcGy/m2. IMPRESSION: Lumbar puncture as detailed above. Performed, dictated, and signed by Jj Paula PA-C; to be co-signed by Dr. Antonio Mcfarlane. Electronically signed by: Antonio Mcfarlane M.D. 01/26/2023 3:23 PM
[2023-01-26 15:59] LABS: Total Protein CSF 615.3 mg/dl (15-45)
[2023-01-26 16:03] LABS: CSF Count Tube # 3
[2023-01-26 16:04] LABS: Appearance CSF Clear; CSF Xanthrochromic Xanthochromic
[2023-01-26 16:07] LABS: Color CSF Pale Yellow
[2023-01-26 16:08] LABS: Red Blood Cell CSF Auto 0 /uL (0-); White Blood Cell CSF Auto 0 /uL (0-5)
--- NOTE | 2023-01-26 16:25 | Communication Note ---
Date of Service: January 26, 2023 Neurology Update: Patient now with worsening weakness and loss of reflexes. LP completed with 0 WBCs and 615 protein concerning for atypical GBS. Will arrange stat transfer to [facility] for apheresis.
[2023-01-26 16:35] LABS: Cryptococcus neoformans/ga PCR Not Detected (NotDetected); Cytomegalovirus PCR Not Detected (NotDetected); Enterovirus PCR Not Detected (NotDetected); Escherichia coli K1 PCR Not Detected (NotDetected); Haemophilius influenzae PCR Not Detected (NotDetected); Herpes Simplex Virus 1 PCR Not Detected (NotDetected); Herpes Simplex Virus 2 PCR Not Detected (NotDetected); Human Herpes Virus 6 PCR Not Detected (NotDetected); Human Parechovirus PCR Not Detected (NotDetected); Listeria monocytogenes PCR Not Detected (NotDetected); Neisseria meningitidis PCR Not Detected (NotDetected); Streptococcus agalactiae PCR Not Detected (NotDetected); Streptococcus pneumoniae PCR Not Detected (NotDetected); Varicella Zoster Virus PCR Not Detected (NotDetected)
--- NOTE | 2023-01-26 17:06 | Communication Note ---
Date of Service: January 26, 2023 Events of today -- Visited with Mr Trevizo this am. He had had a GI illness 2 weeks ago (vomiting, diarrhea) that lasted for a few days. Had fever at that time, then fever again about 1 week ago. Bilateral LE weakness started Wednesday, progressed significantly yesterday just prior to admission. He is now unable to ambulate safely, and he has noted progressive weakness of his arms throughout the day today. He has had severe paresthesias of his legs, arms, and torso. This has worsened over the last 24 hours. Only the neck and head have normal sensation. He denies any dyspnea or dysphagia. Denies any bowel or bladder incontinence. Seen by ortho-spine earlier today --- nothing seen on c-spine/t-spine/l-spine that would account for his current symptoms. MRI brain yesterday neg for acute findings. Patient underwent LP this afternoon - 0 WBCs, 0 RBCs. Total protein level markedly elevated at 615. CSF biofire panel negative. I have been in touch numerous times with Dr Teddy Chapin with [facility] in [place] today. 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 Neuro exam prior to transfer - gen - awake, alert, no dysarthria; breathing comfortably without distress; a little restless neuro - DTRs 0 achiles b/l; 0 patellar b/l; biceps/triceps/brachioradialis <1+ or 0; b/l hip flexion 3-4/5; knee extension severely impaired; ankle dorsiflexion/plantarflexion 4/5; biceps/triceps strength 4/5 b/l; handgrips about 4/5 b/l. Arm extension 4-5/5. NIF: greater than -40 (wnl); strong respiratory effort noted by respiratory therapist Fibrinogen level pending Dr Chapin has accepted the patient to [facility] in [place] and has helped coordinate the transfer process. I appreciate his assistance. Mr Trevizo will go to their Neuro ICU upon arrival and plasmapheresis will be initiated. He will transfer via air given the nature of the suspected Guillain-Underwood and need for emergent treatment. Patient has been kept aware of today's imaging studies, LP results, and plan of care including transfer to [facility] in [place]. Luther Park MD
--- NOTE | 2023-01-26 17:26 | Discharge Summary ---
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 He has never had these symptoms previously. Symptoms started on Wednesday after stretching his neck and intermittent since that time. Neck pain around T1 centrally. he reports paresthesias (tingling) mainly in his hand on ulnar side but also possibly on his forearm. No problems with his upper arm. Worse whenever he is resting at night. He has been on long bike rides and runs since this time without a problem. No reduction in strength of his upper extremities. He has also noticed having to lift up his legs a little higher and his gait has been a bit more imbalanced with mild pain in sciatic region. Mainly coming in today because his symptoms have not been improving but also not getting much worse. No facial droop, change in vision, speech or hearing. He was seen in the emergency room and discharged with advice to follow up for nerve conduction studies as an outpatient. However when he went out to the car he tried to get in and was unable to support his weight on his flexed hip. he reports no dizziness, shortness of breath or chest pain prior to falling. Otherwise well. No fever, chills, URI, GI or urinary symptoms. 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 HTN 3. Right hemidiaphragmatic elevation Discharge Exam gen - awake, alert, no dysarthria; breathing comfortably without distress mouth - MMM neck - no JVD heart - RRR, s1 s2, no murmur lungs - CTA b/l abd - soft NT ND BS+ ext - no edema, pulses 2+ b/l neuro - DTRs - 0 achilles b/l; 0 patellar b/l; biceps/triceps/brachioradialis <1+ or 0; b/l hip flexion 3-4/5; knee extension severely impaired; ankle dorsiflexion/plantarflexion 4/5; biceps/triceps strength 4/5 b/l; handgrips about 4/5 b/l. Arm extension 4-5/5 b/l. No facial droop. Discharge Data Allergies Allergy/AdvReac Type Severity Reaction Status Date / Time No Known Allergies Allergy Verified 01/25/23 10:07 Consultations [facility] Telehealth - Teddy Chapin MD Orthopedic Surgery - Jordy Hartman DO Procedures Performed Lumbar puncture by interventional radiology Ordered Studies Chest X-Ray 01/25/23 13:10 SINGLE VIEW CHEST CLINICAL HISTORY: Generalized weakness. FINDINGS: An AP, portable, upright chest radiograph is compared to study dated 06/21/2018. The cardiomediastinal silhouette is unremarkable. Elevation of the right hemidiaphragm is new from 2018. There is associated right basilar atelectasis. No airspace consolidation typical for pneumonia or large pleural effusion is identified. No pneumothorax is seen. The bony thorax is grossly intact. IMPRESSION: 1. No active disease in the chest. 2. Elevation of the right hemidiaphragm with right basilar atelectasis is new from 06/21/2018. This could be seen with diaphragmatic paralysis. Correlate clinically. ACT 112: Negative or not required by law. Electronically signed by: Antonio Mcfarlane M.D. 01/25/2023 2:[address] 01/25/23 13:[address] WITH CONTRAST CT DOSE: 1213.44 mGy.cm HISTORY: Acute shortness of breath with right hemidiaphragmatic elevation new right hemidiaphragm elevation TECHNIQUE: Multiaxial CT images of the chest were performed following the IV administration of 115 cc of Optiray. A dose lowering technique was utilized adhering to the principles of ALARA. COMPARISON: Chest radiograph of same day, 06/11/2018 FINDINGS: Unremarkable thyroid. No lymphadenopathy. Heart is mildly enlarged. Mild coronary artery calcifications. Unremarkable thoracic aorta and pulmonary artery. Moderate right hemidiaphragmatic elevation. No pneumothorax, pleural effusion or overt pulmonary edema. The left lung is clear. Subsegmental linear consolidation of the right lung base. There are no suspicious pulmonary nodules or masses identified. There is mildly decreased transverse dimension of the t rachea. Tiny hiatal hernia. Moderate colonic fecal retention. No acute process of the imaged upper abdomen. Unremarkable soft tissues. No acute fracture. IMPRESSION: 1. Moderate right diaphragmatic elevation with subsegmental right basilar atelectasis. 2. No lymphadenopathy, pleural effusion or airspace consolidation typical for pneumonia. 3. Cardiomegaly with mild coronary artery calcifications. ACT 112: Negative or not required by law. Electronically signed by: Andrea Condon M.D. 01/25/2023 3:05 PM Head CTA 01/25/23 13:58 CT ANGIOGRAM OF THE BRAIN CLINICAL HISTORY: Neck pain. Paresthesias. COMPARISON STUDY: CT and MRI of the brain dated 01/25/2023. TECHNIQUE: Following the IV administration of 115 cc of Optiray 320, CT angiogram of the brain was performed from the skull base to the vertex. Images are reviewed in the axial, sagittal, and coronal planes. 3-D MIPS images are created and assessed. IV contrast was administered without complication. A dose lowering technique was utilized adhering to the principles of ALARA. FINDINGS: Brain parenchyma: The brain parenchyma is normal in appearance. There is no evidence of hemorrhage, mass effect, or acute territorial ischemia noting angiographic phase technique. There is no evidence of enhancing mass lesion on the angiogram phase images. No extra-axial fluid collection is seen. Dumont-white matter differentiation is preserved. Ventricles, sulci, and cisterns: Normal in configuration. CT angiogram of the brain: The internal carotid arteries are widely patent, as are the anterior and middle cerebral arteries. The right A1 segment is diminutive. The vertebrobasilar system and posterior cerebral arteries are widely patent. The right vertebral artery is dominant. There is no aneurysm, high-grade stenosis, or focal vessel cutoff identified throughout the intracranial circulation. Dural sinuses: Clear as visualized. Orbits: The bony orbits are intact. The orbital contents are normal as visualized. Sinuses and mastoids: There is mild mucosal thickening within the maxillary antra. The remaining paranasal sinuses are clear. The mastoid air cells are well pneumatized. Calvarium: Unremarkable. IMPRESSION: 1. There is no evidence of hemorrhage, mass effect, or acute territorial ischemia noting angiographic phase technique. 2. Unremarkable CT angiogram of the brain. ACT 112: Negative or not required by law. Electronically signed by: Antonio Mcfarlane M.D. 01/25/2023 2:42 PM Neck CTA 01/25/23 13:58 CT ANGIOGRAPHY OF THE NECK WITH CONTRAST CLINICAL HISTORY: Neck pain, bilateral paresthesia ?vertebral artery dissection. COMPARISON STUDY: Cervical spine CT performed earlier today. Technique: CT angiography of the carotid and vertebral arteries was obtained using Optiray and 3D reconstruction on an independent workstation. NASCET criteria was utilized. Automated exposure control was utilized for the study. A dose lowering technique was utilized adhering to the principles of ALARA. Findings: Please note that the chest CT will be reported separately. There is no cervical lymphadenopathy. There is no cervical spine fracture. The bilateral common carotid, cervical internal carotid and vertebral arteries are patent. There is no dissection or stenosis within these vessels. The right vertebral artery is dominant. There is no aneurysm within the neck. The CTA of the head will be reported separately. IMPRESSION: No stenosis or dissection within the major vessels of the neck. ACT 112: Negative or not required by law. Electronically signed by: Buck Cowart M.D. 01/25/2023 2:57 PM Lumbar Spine MRI 01/25/23 14:01 MR lumbar spine wo con CLINICAL HISTORY: 67 years-old Male with bilateral lower hip flexor weakness. Chronic low back pain COMPARISON: Chest radiograph of same day TECHNIQUE: Multiplanar, multi sequence MRI of the lumbar spine was performed without intravenous contrast. FINDINGS: Product Promoter Sales Person localizer images demonstrate no gross extraspinal abnormality. The conus medullaris terminates at T12-L1. Signal within the imaged thoracic spinal cord is unremarkable. No acute fracture, subluxation, endplate erosion or marrow replacing process. Mild deep tissue edema adjacent to the L4-L5 and L5-S1 facets. T12-L1: Mild intervertebral disc space narrowing with spondylotic spurring, ligamentum flavum thickening and moderate facet arthrosis. No central canal or neural foraminal stenosis. L1-L2: Moderate intervertebral disc space narrowing with spondylotic spurring, ligamentum flavum thickening and moderate facet arthrosis. Small circumferential annular disc bulge. Mild left neural foraminal narrowing. The central canal and right neural foramen are patent. L2-L3: Mild spondylotic spurring. Ligamental flavum thickening with moderate facet arthrosis. No central canal or neural foraminal stenosis. L3-L4: Mild intervertebral disc space narrowing with spondylotic spurring, ligamentum flavum thickening and moderate facet arthrosis. No central canal or neural foraminal stenosis. L4-L5: Mild spondylotic spurring. Ligamental flavum thickening with severe facet arthrosis.No central canal or neural foraminal stenosis. L5-S1: Moderate to severe intervertebral disc space narrowing. Mild spondylitic spurring with central disc osteophyte complex. Flattening of the ventral thecal sac. Moderate facet arthrosis. No central canal or neural foraminal stenosis. IMPRESSION: 1. Discogenic degeneration and facet arthrosis as above without significant central canal or neural foraminal narrowing. 2. Severe facet arthrosis at L4-L5 with mild adjacent likely degenerative related edema. ACT 112: Negative or not required by law. The above report was generated using voice recognition software. It may contain grammatical, syntax or spelling errors. Electronically signed by: Andrea Condon M.D. 01/25/2023 3:59 PM Lumbar Puncture 01/26/23 09:00 LUMBAR PUNCTURE UNDER FLUOROSCOPY CLINICAL HISTORY: Bilateral lower extremity paresthesias/weakness; evaluate for the GBS/transverse myelitis PROCEDURE: Procedure and risks were explained. Informed consent was obtained. A final timeout was completed. The lower lumbar region was prepped and draped in sterile fashion. 1% lidocaine was utilized for skin anesthesia. Utilizing fluoroscopic guidance, a 22-gauge spinal needle was advanced into the intrathecal space at the L4-5 disc space level. Lateral and AP spot images were obtained. 1 mL of clear CSF fluid was removed. The needle became dislodged and additional attempts at gaining access were unsuccessful. It was decided to attempt the LP at the L3-4 disc space level. Utilizing fluoroscopic guidance, a 22-gauge spinal needle was advanced into the intrathecal space at the L3-4 disc space level. Permanent spot image was obtained. An additional 8 mL of clear CSF fluid was removed and sent to the lab for analysis. The needle was removed and Band-Aid applied. The patient tolerated the procedure well. Vital signs will be monitored on the floor postprocedure. Total fluoroscopy time 1.08 minutes. DAP is 13.2.mcGy/m2. IMPRESSION: Lumbar puncture as detailed above. Performed, dictated, and signed by Jj Paula PA-C; to be co-signed by Dr. Antonio Mcfarlane. Electronically signed by: Antonio Mcfarlane M.D. 01/26/2023 3:23 PM Thoracic Spine MRI 01/26/23 09:32 MR thoracic spine wo con HISTORY: 67 years-old Male leg weakness chronic mid back pain with lower extremity weakness. COMPARISON: MR lumbar spine 01/25/2023, chest CT 01/25/2023. TECHNIQUE: Multiplanar multisequence MRI of the thoracic spine was obtained without the use of IV contrast. FINDINGS: Moderate right hemidiaphragmatic elevation with right basilar atelectasis again noted. The imaged posterior fossa structures appear unremarkable. Mild mucosal thickening of the maxillary sinuses. Normal signal within the thoracic and visualized cervical spinal cord. No acute fracture, subluxation, endplate erosion or destructive bone lesions. There is mild Modic type I endplate degeneration at T12-L1. Trace layering pleural effusions. Conus medullaris terminates at the T12-L1 level. Mild to moderate intervertebral disc space narrowing is most pronounced at T5- T6. Mild spondylotic spurring with small annular disc bulging, ligamentum flavum thickening and mild to moderate facet arthrosis. No high-grade central canal or neural foraminal narrowing identified. There is mild to moderate left-sided neural foraminal narrowing noted at T7-T8 secondary to facet arthrosis and posterior disc osteophyte complex. Small right paracentral disc protrusion at this interspace. At T10-T11, there is normal left with mild to moderate right neural foraminal narrowing. IMPRESSION: 1. No acute fracture, subluxation or suspicious bone lesion. 2. Normal signal within the thoracic spinal cord. 3. No high-grade central canal or neural foraminal narrowing. 4. Right hemidiaphragmatic elevation with right basilar atelectasis redemonstrated. ACT 112: Negative or not required by law. The above report was generated using voice recognition software. It may contain grammatical, syntax or spelling errors. Dictated: 01/26/2023 12:12 PM Transcribed: 01/26/2023 12:56 PM Dominique [id number] Electronically signed by: Andrea Condon M.D. 01/26/2023 1:20 PM Hospital Course (1) Guillain Sanchez syndrome: The patient had progressive, ascending weakness during his brief stay at [facility]. He had bilateral lower extremity weakness which then progressed to involve his arms. He also had diffuse paresthesias with only sparing of his head & neck. He underwent a large neurological work-up including MRI brain, MRI cervical spine, MRI thoracic spine, MRI lumbar spine, and ultimately lumbar puncture by interventional radiology. MRI brain and hernandez-MRI of the spinal cord did not reveal any pathology that would explain his symptoms and physical exam findings. Dr Jordy Hartman with orthopedics-spine saw the patient in consult and also felt that there was not an anatomical lesion or pathology of the spine on imaging that was causing his symptoms. In addition, vitamin B12, lyme disease screen, etc were normal/negative. On hospital day #2 Mr Trevizo underwent lumbar puncture by interventional radiology. There was no evidence of any infectious process as his WBC count was 0. CSF total protein level was markedly elevated at 615. Dr Teddy Chapin, [facility] in [place], had seen the patient via telehealth and was instrumental in the patient's care. Following the lumbar puncture all signs pointed towards a diagnosis of Guillain Hooker syndrome as the cause of his ascending weakness. Of note - patient had had a GI illness about 2 weeks prior to this admission. It is quite possible that the causative agent of that GI illness had triggered this event. Once the CSF cell counts/total protein had returned Dr Chapin arranged a neuro-ICU bed at [facility] for Mr Trevizo. He was emergently flown to [facility] to initiate plasmapheresis treatments for suspected Guillain Hooker Syndrome. Fortunately, despite the right-sided hemidiaphragmatic elevation - which may be due to Guillain Hooker - the patient had no signs of respiratory failure prior to his transfer. NIF (negative inspiratory force) was in normal range just prior to his transfer. Finally, the patient had markedly elevated blood pressures over his brief stay. This may have been due to autonomic dysfunction from the suspected Guillain Hooker. (2) Cervical stenosis of spinal canal: as seen on MRI c-spine (3) Elevated hemidiaphragm: right-sided see #1 above (4) Hypertension: labile possibly due to autonomic dysfunction from suspected Guillain-Hooker remains on lisinopril prior to transfer to [facility] (5) History of prostate cancer: diagnosed 2018 Plan I would like to thank Dr Teddy Chapin, [facility], for accepting Mr Trevizo in transfer to [facility] for ongoing care. Total Time Total Time Spent Total Time Spent (In Minutes): 60 Discharge Plan Discharge Items Patient Disposition: Transfer Acute Care Hospital Reason For Visit: NEW ONSET PARESTHESIAS AND LEG WEAKNESS Discharge Diagnosis: High suspicion for Guillain-Hooker Syndrome Activity: As commented below Activity Comment: bedrest Non-emergency contact: Primary Care Provider Call non-emergency contact if: you have any medication questions Follow-up/Referrals: Phill Abraham MD [Primary Care Provider] - Diet: Nothing by Mouth Addtl Attending Provider Instructions: Further instructions to follow after your hospitalization at [facility]. Pending Studies at Discharge: Yes Studies:: CSF studies Stand-Alone Forms: My [facility] Skilled Items Patient informed of condition?: Yes DNR: No Discharge Level of Care: Other Communicable Disease: No Discharge Prognosis: Deteriorating Lines: Peripheral IV Urinary Catheter: No Medications and DC Order Prescriptions: Continued ascorbic acid (vitamin C) [Vitamin C] 1,000 mg Tablet 1 g PO QAM Rx Instructions: Pt takes during cold & flu season as needed. lisinopril 10 mg tablet 10 mg PO DAILY Qty: 30 0RF multivitamin Tablet 1 tab PO DAILY acetaminophen [Tylenol Extra Strength] 500 mg Tablet 1,000 mg PO Q6H PRN (Reason: Pain) Discontinued ibuprofen [Motrin IB] 200 mg Tablet 600 - 800 mg PO BID PRN (Reason: Pain) Discharge Orders: Discharge Order (Routine); Ordered 01/26/23 Ordered By: Luther Park Admission Data Admit Date/Time: 01/25/23 14:07 Attending Provider: Luther Park Admit Provider: Luther Ramirez Primary Care Provider: Phill Abraham Other Providers: Teddy Chapin Gregory M Other Interventions: Discharge Summary Assessment (RN) Last Done: 01/26/23 17:11 Coding Level of Care Code 01287 INP/OBS DISCH >30 MIN Diagnoses Guillain Sanchez syndrome G61.0 Cervical stenosis of spinal canal M48.02 Elevated hemidiaphragm J98.6 Hypertension I10 History of prostate cancer Z85.46
[2023-01-26 17:45] LABS: Fibrinogen 402 mg/dl (184-400)
[2023-01-27 10:16] LABS: HBSAG NON-REACTIVE (NON-REACTIVE); Hepatitis A Antibody IgM NON-REACTIVE (NON-REACTIVE); Hepatitis B Core Antibody IgM NON-REACTIVE (NON-REACTIVE)
[2023-01-30 16:27] LABS: Lyme DNA PCR CSF or Synovial Not Detected (Not Detected); Lyme DNA Source CSF
[2023-02-02 20:46] LABS: Lyme IgG Band Pattern CSF DNR; Lyme IgG CSF NO BANDS DETECTED; Lyme IgM Band Pattern CSF DNR; Lyme IgM CSF NO BANDS DETECTED
== END 2023-01-26 18:07 | disposition short-term general hospital (02) ==
LOC: 3E 12:59 → ED 12:59 → SUATTDRO 14:07 → 3E 15:37